=== PATIENT | male | born 1990 | race Caucasian/White ===

== ENCOUNTER 2017-10-21 08:09 | Emergency (ER) | payer MEDICAID ==
[~2017-10-21] VITALS: Ht 177.8 cm; Wt 89.1 kg
[2017-10-21] MEDS ORDERED: IBUPROFEN 600 MG TABLET PO ONE (08:45)
[2017-10-21 08:57] VITALS: BP 120/77
== END 2017-10-21 09:33 | disposition home or self-care (01) ==
LOC: EMS 08:19
DX: S93.401A Sprain of unspecified ligament of right ankle, initial encounter (principal); W11.XXXA Fall on and from ladder, initial encounter; Y93.89 Activity, other specified; Y92.89 Other specified places as the place of occurrence of the external cause; Y99.8 Other external cause status
CPT/HCPCS: 99284

== ENCOUNTER 2017-11-21 11:22 | Emergency (ER) | payer MEDICAID ==
[~2017-11-21] VITALS: Ht 177.8 cm; Wt 93.2 kg
[2017-11-21] MEDS ORDERED: KETOROLAC TROMETHAMINE 60 MG/2 ML VIAL IM ONE (12:30)
[2017-11-21] MEDS ORDERED: METHOCARBAMOL 500 MG TABLET PO ONE (12:30)
[2017-11-21 13:38] VITALS: BP 141/78
== END 2017-11-21 13:40 | disposition home or self-care (01) ==
LOC: EMS 11:23
DX: S39.012A Strain of muscle, fascia and tendon of lower back, initial encounter (principal); V43.52XA Car driver injured in collision with other type car in traffic accident, initial encounter; Y93.89 Activity, other specified; Y92.411 Interstate highway as the place of occurrence of the external cause; Y99.8 Other external cause status
CPT/HCPCS: 96372; 99283; J1885

== ENCOUNTER 2017-11-29 04:57 | Emergency (ER) | payer MEDICAID ==
[~2017-11-29] VITALS: Ht 177.8 cm; Wt 93.2 kg
[2017-11-29 10:25] VITALS: BP 131/71
== END 2017-11-29 10:28 | disposition home or self-care (01) ==
LOC: EMS 04:57
DX: T14.8XXA Other injury of unspecified body region, initial encounter (principal); M54.9 Dorsalgia, unspecified; X58.XXXA Exposure to other specified factors, initial encounter; Y93.89 Activity, other specified; Y92.89 Other specified places as the place of occurrence of the external cause; Y99.8 Other external cause status
CPT/HCPCS: 99281